=== PATIENT | female | born 1960 | race Caucasian/White ===

== ENCOUNTER → 2023-05-14 09:34 | Outpatient (BNVA) | payer OTHER, SELFPAY | PROVIDERS: PCP Family Medicine; Visit Provider Family Medicine | DX: M19.049 Primary osteoarthritis, unspecified hand (principal); E78.5 Hyperlipidemia, unspecified; F32.4 Major depressive disorder, single episode, in partial remission; R53.83 Other fatigue; Z00.00 Encounter for general adult medical examination without abnormal findings | CPT/HCPCS: 80053; 80061; 82306; 82607; 84443; 86431 ==

== ENCOUNTER → 2024-06-13 08:51 | Outpatient (BNVA) | payer OTHER, SELFPAY | PROVIDERS: PCP Family Medicine; Visit Provider Family Medicine | DX: R53.83 Other fatigue (principal); F32.4 Major depressive disorder, single episode, in partial remission; E78.5 Hyperlipidemia, unspecified | CPT/HCPCS: 80053; 80061; 82306; 82607; 84443; 85025 ==